=== PATIENT | female | born 1940 | race Caucasian/White ===

== ENCOUNTER 2017-08-29 10:46 | Emergency (ER) | payer MEDICARE, BC ==
[2017-08-29 10:51] VITALS: BP 159/75
[2017-08-29] MEDS ORDERED: DOXYcycline CAP(*) 100 MG PO ONE (12:01)
--- NOTE | 2017-08-29 12:05 | ED ---
Skin Complaint - HPI Summary HPI Summary: 77 female presents to ED with complaints of possible tick bite to proximal left thigh that she noticed 1 week ago. Patient states she thought it was a mole, applied antiseptic solution and covered it with a bandaid. Patient states she took the bandaid off yesterday. She noticed this morning the "mole" /tick then removed itself and area became very red with surrounding rash. Denies being outside and does not have pets. Unsure where she got the tick and when it attached however she noticed it 1 week ago. Denies any other symptoms such as fatigue, fever, other bites/rash, and arthralgias. No other complaints. No medications. PMHx includes HTN and high cholesterol. - History of Current Complaint Chief Complaint: EDGeneral Time Seen by Provider: 08/29/17 10:54 Stated Complaint: TICK BITE Hx Obtained From: Patient Onset/Duration: Started Weeks Ago - 1 Skin Exposure Onset/Duration: Weeks Ago - 1 Timing: Constant Onset Severity: Mild Current Severity: Mild Pain Intensity: 0 Pain Scale Used: 0-10 Numeric Skin Location: Leg - left proximal, anterior thigh Character: Swelling, Redness, Raised Aggravating Symptom(s): Nothing Alleviating Symptom(s): Nothing Associated Signs & Symptoms: Rash Related History: Insect Bite/Sting - tick - Allergy/Home Medications Allergies/Adverse Reactions: Allergies Allergy/AdvReac Type Severity Reaction Status Date / Time No Known Allergies Allergy Verified 08/29/17 11:22 PMH/Surg Hx/FS Hx/Imm Hx Endocrine/Hematology History: Denies: Hx Diabetes Cardiovascular History: Reports: Hx Hypercholesterolemia, Hx Hypertension Respiratory History: Denies: Hx Asthma Neurological History: Reports: Hx Headaches - Cancer History Hx Chemotherapy: No Hx Radiation Therapy: No - Surgical History Surgery Procedure, Year, and Place: n/a - Immunization History Immunizations Up to Date: Yes Infectious Disease History: Yes Infectious Disease History: Denies: Traveled Outside the [place] in Last 30 Days - Family History Known Family History: Positive: Hypertension - Social History Alcohol Use: None Substance Use Type: Reports: None Smoking Status (MU): Never Smoked Tobacco Review of Systems Constitutional: Negative Cardiovascular: Negative Respiratory: Negative Positive: Rash, Other - tick bite Neurological: Negative All Other Systems Reviewed And Are Negative: Yes Physical Exam Triage Information Reviewed: Yes Vital Signs On Initial Exam: Initial Vitals Temp Pulse Resp BP Pulse Ox 98.4 F 98 18 159/75 98 08/29/17 10:49 08/29/17 10:49 08/29/17 10:49 08/29/17 10:49 08/29/17 10:49 Vital Signs Reviewed: Yes Appearance: Positive: Well-Appearing, No Pain Distress, Well-Nourished Skin: Positive: Warm, Skin Color Reflects Adequate Perfusion, Dry, Erythema @ - proximal/anterior left thigh erythema with some edema of 10cm, round, sign of bite however no tick presents on exam, patient she did remove it [employer]. rest of skin exam normal. Negative: Cold, Cyanosis @, Purpura, Pale, Jose Tracts Head/Face: Positive: Normal Head/Face Inspection Eyes: Positive: Conjunctiva Clear ENT: Positive: Hearing grossly normal Neck: Positive: Supple, Nontender, No Lymphadenopathy Respiratory/Lung Sounds: Positive: Clear to Auscultation, Breath Sounds Present. Negative: Rales, Rhonchi, Wheezes Cardiovascular: Positive: Normal, RRR, Pulses are Symmetrical in both Upper and Lower Extremities. Negative: Murmur, Rub Musculoskeletal: Positive: Normal, Strength/ROM Intact. Negative: Limited @, Interruption @, Pain @ Neurological: Positive: Normal, Sensory/Motor Intact, Alert, Oriented to Person Place, Time, CN Intact II-III, Reflexes Intact, NV Bundle Intact Distally, Normal Gait - Jazmín Coma Scale Coma Scale Total: 15 Diagnostics - Vital Signs Vital Signs Temp Pulse Resp BP Pulse Ox 08/29/17 10:49 98.4 F 98 18 159/75 98 - Laboratory Lab Statement: Any lab studies that have been ordered have been reviewed, and results considered in the medical decision making process. Course/Dx - Course Course Of Treatment: patient educated on lyme disease. appears to have been biten by tick with engorgment for over 1 week. will treat for lyme for 21 days due to length of tick attachment. No other symptoms or other emergent etiology of concern. Told to have blood work obtained to check for lyme in 4-6 weeks and 3 months with PCP. Patient was educated and is aware of worsening and progressive signs/symptoms of lyme. to ezio area of bite clean and dry and to watch carefully. wear bug spray and check skin after being outside. Follow up with pcp. - Differential Diagnoses - Skin Complaint Differential Diagnoses: Tick Born Illness, Other - bug bite, lyme disease, erythema migrans, rash, cellulitis - Diagnoses Provider Diagnoses: Tick bite Discharge - Discharge Plan Condition: Stable Disposition: HOME Prescriptions: DOXYcycline CAP(*) [DOXYcycline 100MG CAP(*)] 100 mg PO BID #40 cap Patient Education Materials: Doxycycline (By mouth), Lyme Disease (ED), Tick Bite (ED) Referrals: Alphonso Wood MD [Primary Care Provider] - Additional Instructions: Please take medication as directed until entire dose is finished. Follow up with primary care doc for blood work and follow up for Lyme disease. Any new or worsening symptoms please seek medical attention, as discussed. Be sure to always check skin after being outside and remove ticks as soon as possible if able.
== END 2017-08-29 12:21 | disposition home or self-care (01) ==
LOC: ED 10:46
DX: S70.362A Insect bite (nonvenomous), left thigh, initial encounter (principal); R21 Rash and other nonspecific skin eruption; W57.XXXA Bitten or stung by nonvenomous insect and other nonvenomous arthropods, initial encounter; Y93.9 Activity, unspecified; Y92.9 Unspecified place or not applicable
CPT/HCPCS: 99282; A9270-GY

== ENCOUNTER → 2019-03-30 | Emergency (ER) | payer MEDICARE, BC ==
[~2019-03-30] MED LIST: NS 0.9% 1000 ML** 1,000 ML IV ONE
[2019-03-30 18:33] LABS: ABS Eosinophils 0.2 10^3/ul (0-0.6); ABS Monocytes 0.6 10^3/ul (0-0.8); ABS Neutrophils 3.7 10^3/ul (1.5-7.7); Eosinophil % 2.8 %; Hematocrit 39 % (35-47); Hemoglobin 13.1 g/dL (12.0-16.0); Lymphocyte % 31.3 %; Mean Corpuscular HGB Conc 34 g/dL (31-36); Mean Corpuscular Hemoglobin 31 pg (27-31); Mean Corpuscular Volume 90 fL (80-97); Platelet Count 269 10^3/uL (150-450); Red Blood Count 4.31 10^6 /uL (3.70-4.87); Red Cell Distribution Width 13 % (10-15); White Blood Count 6.5 10^3/uL (3.5-10.8)
--- NOTE | 2019-03-30 18:42 | ED ---
Abdominal Pain/Female - HPI Summary HPI Summary: This patient is a 79 year old F presenting to [facility] with a chief complaint of abdominal pain and diarrhea for about a week. She states that she restricted herself to a bland diet to a good effect but the symptoms have resurfaced today. Her friend has had similar Sx for about 4 weeks and has been to the ED without a clear diagnosis. The pt states that her friend has drunk from her water bottle while on a trip to [place]. She denies any fever, chills, diaphoresis, nausea, vomiting, headaches, urinary issues, and CP. She reports feeling bloated after eating soup and crackers today with cramping pain resolved by diearrhea. At time of eval, pt without abdominal pain or need to have a BM. Pt had1 episode today - no blood, no black. When present, she rates the cramps a 4/10. She has been taking her IBS medication with little effect. no fever, chills. No back pain. No recent travel, recent abx, Pt gets colonoscopies every 5 years - no issues. Patients medication reviewed this visit. She has well water at her house but states that she does not drink it and only drinks out of water bottles. She and friend shared water. She currently lives with her and is retired with no symptoms . - History of Current Complaint Chief Complaint: EDNauseaVomitDiarrh Stated Complaint: ABD PAIN/DIARREHEA PER PT Time Seen by Provider: 03/30/19 18:06 Hx Obtained From: Patient ?: No Onset/Duration: Gradual Onset, Lasting Weeks, Still Present Timing: Constant Severity Initially: Moderate Severity Currently: Moderate Pain Intensity: 4 Pain Scale Used: 0-10 Numeric Location: Diffuse Radiates: No Character: Cramping Aggravating Factor(s): Food Alleviating Factor(s): Bowel Movement - Diarrhea Associated Signs and Symptoms: Positive: Diarrhea, Other: - Abdominal pain NEGATIVE:headache and chills. Negative: Diaphoresis, Fever, Chest Pain, Urinary Symptoms, Nausea, Vomiting Simlar Episode/Dx as:: States that her friend has had similar Sx, they shared a water bottle. Allergies/Adverse Reactions: Allergies Allergy/AdvReac Type Severity Reaction Status Date / Time No Known Allergies Allergy Verified 03/30/19 15:55 PMH/Surg Hx/FS Hx/Imm Hx Previously Healthy: No Endocrine/Hematology History: Denies: Hx Diabetes Cardiovascular History: Reports: Hx Hypercholesterolemia, Hx Hypertension Respiratory History: Denies: Hx Asthma Neurological History: Reports: Hx Headaches - Cancer History Hx Chemotherapy: No Hx Radiation Therapy: No - Surgical History Surgery Procedure, Year, and Place: n/a - Immunization History Immunizations Up to Date: Yes Infectious Disease History: No Infectious Disease History: Denies: Traveled Outside the [place] in Last 30 Days - Family History Known Family History: Positive: Hypertension, Other - Colon cancer, Non- Contributory - Social History Occupation: Retired Lives: With Family - Alcohol Use: Weekly Hx Substance Use: No Substance Use Type: Reports: None Hx Tobacco Use: Yes Smoking Status (MU): Former Smoker Review of Systems Negative: Fever, Chills, Skin Diaphoresis Negative: Chest Pain Positive: Abdominal Pain - cramping resolved with BM - non present, Diarrhea. Negative: Vomiting, Nausea Genitourinary: Negative Negative: Headache All Other Systems Reviewed And Are Negative: Yes Physical Exam - Summary Physical Exam Summary: Vital Signs Reviewed: Yes A+Ox3, no distress, pleasant, NAD Eyes: Conjunctiva Clear, JEEVAN. EOM intact and full ENT: Hearing grossly normal TM x 2 clear, mmoist, uvula midline, no exudate, no erythema Neck: Positive: Supple Respiratory: Positive: No respiratory distress, No accessory muscle use + CTA throughout no w/r Cardiovascular: RRR nl s1, s2 no m/r CBT <2 sec abd soft + BS nt/nd no guarding, no distension, no CVA Musculoskeletal Exam: GOODSON x 4 without difficulty Strength Intact, ROM Intact Neurological: Positive: Alert, + sensation throughout Psychological: Positive: Normal Response To land checker Skin: Positive: no rash, no ecchymosis Triage Information Reviewed: Yes Vital Signs On Initial Exam: Initial Vitals Temp Pulse Resp BP Pulse Ox 98.9 F 84 16 130/81 96 03/30/19 15:50 03/30/19 15:50 03/30/19 15:50 03/30/19 15:50 03/30/19 15:50 Diagnostics - Vital Signs Vital Signs Temp Pulse Resp BP Pulse Ox 03/30/19 18:07 74 118/67 94 03/30/19 18:00 74 99 03/30/19 17:37 76 145/86 98 03/30/19 15:50 98.9 F 84 16 130/81 96 - Laboratory Lab Results: Lab Results 03/30/19 Range/Units 18:25 WBC 6.5 (3.5-10.8) 10^3/uL RBC 4.31 (3.70-4.87) 10^6 /uL Hgb 13.1 (12.0-16.0) g/dL Hct 39 (35-47) % MCV 90 (80-97) fL MCH 31 (27-31) pg MCHC 34 (31-36) g/dL RDW 13 (10-15) % Plt Count 269 (150-450) 10^3/uL MPV 7.0 L (7.4-10.4) fL Neut % (Auto) 56.8 % Lymph % (Auto) 31.3 % [place] % (Auto) 8.5 % Eos % (Auto) 2.8 % Baso % (Auto) 0.6 % Absolute Neuts (auto) 3.7 (1.5-7.7) 10^3/ul Absolute Lymphs (auto) 2.0 (1.0-4.8) 10^3/ul Absolute Monos (auto) 0.6 (0-0.8) 10^3/ul Absolute Eos (auto) 0.2 (0-0.6) 10^3/ul Absolute Basos (auto) 0.0 (0-0.2) 10^3/ul Absolute Nucleated RBC 0.0 10^3/ul Nucleated RBC % 0.0 Result Diagrams: 03/30/19 18:25 03/30/19 18:25 Lab Statement: Any lab studies that have been ordered have been reviewed, and results considered in the medical decision making process. - Radiology Abdomen X-Ray Radiology Interpretation Completed By: ED Physician Summary of Radiographic Findings: Nonspecific bowel gas pattern, no concern for immediate reaction. PEnding offical review. Re-Evaluation - Re-Evaluation First Eval Re-Evaluation Time: 20:00 Change: Improved Comment: Pt reported feeling much better. continues without pain or sx. Pt still cannot produce a BM sample. Second Eval Re-Evaluation Time: 20:31 Change: Improved Comment: Pt was given a home BM testing kit which she has been instructed to use and is agreeable to collecting her sample at home after being unable to produce a stool sample during her ED course. return precuations f/u with PCP pt comfortable and in agreement with plan - clears to bland Abdominal Pain Fem Course/Dx - Course Course Of Treatment: Pt presents to ED reporting intermittent diarrhea x 1 week. P tstates gets abd cramping relieved by BM - no blood, no black. States intermittently feels bloated. as IBD and taking med for that. No other ocmplaints. States ate bland food yesterday with improvement, - another episode today. no fever, chills. n on/v. n otravel no abx VSS pt very well appearing, well hydrated, witn normal nonconcerning abd exam Will check labst, urine, stool sample and reassess Pt declined analgesia. no current sx, drinking water. will hold imaging a this time - Diagnoses Provider Diagnoses: Intermittent diarrhea Discharge - Sign-Out/Discharge Documenting (check all that apply): Patient Departure - discharge Patient Received Moderate/Deep Sedation with Procedure: No - Discharge Plan Condition: Stable Disposition: HOME Patient Education Materials: Acute Diarrhea (ED) Referrals: Alphonso Wood MD [Primary Care Provider] - Additional Instructions: For the first 6 hours, eat and drink clears (water, monica kemal, soup broth, jello, popsicles, Gatorade). If you tolerate this okay, add bland foods such as dry toast, scrambled eggs, crackers. It is recommended you eat small, frequent doses of food - eat something every 2-3 hours You have been sent home with a stool collection kit and a lab order form - bring a sample to a [facility] lab for further testing Okay to take over the counter immodium for diarrhea Contact your doctor tomorrow to schedule a follow-up appointment in the next several days. Contact your doctor or return for uncontrolled pain, vomiting, fever, chills or other concerns As discussed, your radiograph was reviewed by the provider that treated you tonight. It will be read by a radiologist tomorrow morning. If there is a finding other than that discussed with you today, you will receive a call from a care provider. - Billing Disposition and Condition Condition: STABLE Disposition: Home - Attestation Statements Document Initiated by Scribe: Yes Documenting Scribe: Jb Herrera Provider For Whom Scribe is Documenting (Include Credential): Beba Preston MD Scribe Attestation: I, Jb Herrera, scribed for Beba Preston MD on 04/02/19 at 1505. Scribe Documentation Reviewed: Yes Provider Attestation: The documentation as recorded by the scribeJb accurately reflects the service I personally performed and the decisions made by me, Beba Preston MD Status of Scribe Document: Viewed
[2019-03-30 18:53] LABS: Albumin 4.3 g/dL (3.2-5.2); Albumin/Globulin Ratio 1.3 (1-3); Calcium 10.2 mg/dL (8.6-10.3); EGFR African American 59.2 (>60); EGFR Non-African American 48.9 (>60); Globulin 3.4 g/dL (2-4); Potassium 4.1 mmol/L (3.5-5.0); Total Bilirubin 0.3 mg/dL (0.2-1.0); Total Protein 7.7 g/dL (6.4-8.9)
[2019-03-30 18:58] LABS: Urine Appearance Cloudy; Urine Bacteria Absent (Absent); Urine Bilirubin Negative (Negative); Urine Blood Negative (Negative); Urine Color Yellow; Urine Glucose Negative (Negative); Urine Ketones Negative (Negative); Urine Nitrite Negative (Negative); Urine Protein Negative (Negative); Urine Red Blood Cell Absent (Absent); Urine Specific Gravity 1.009 (1.010-1.030); Urine Squamous Epithelial Cell Present (Absent); Urine Urobilinogen Negative (Negative); Urine White Blood Cell Trace(0-5/hpf) (Absent)
[2019-03-30 21:17] VITALS: BP 119/82
== END | disposition home or self-care (01) ==
LOC: ED 15:40
DX: R19.7 Diarrhea, unspecified (principal); R10.9 Unspecified abdominal pain; I10 Essential (primary) hypertension; Z87.891 Personal history of nicotine dependence
CPT/HCPCS: 36415; 74019; 80053; 81003; 81015; 83735; 85025; 87086; 96360; 96361; 99284